=== PATIENT | male | born 1995 | race Hispanic/Latino ===

== ENCOUNTER 2022-03-24 12:22 | Emergency (ER) ==
[~2022-03-24 12:22] MED LIST: Iopamidol-370 76% 500 ML 1 ML ONE
[2022-03-24 13:54] LABS: #Eosinphils 0.1 thou/uL (0.0-0.7); #Lymphocytes 1.1 thou/uL (1.20-3.40); #Monocytes 0.7 thou/uL (0.11-0.59); #Neutrophils 7.2 thou/uL (1.40-6.50); %Basophils 0.1 % (0.0-1.0); %Eosinophils 1.2 % (0.0-10.0); %Lymphocytes 12.4 % (21.0-51.0); %Monocytes 7.3 % (0.0-10.0); Mean Corpuscular Hemoglobin 31.7 pg (27.0-31.0); Mean Corpuscular Volume 93.5 fL (78.0-98.0); Mean Platelet Volume 7.4 fL (7.4-10.4); Platelet Count 193 thou/uL (130-400); RBC Distribution Width 11.5 % (11.5-14.5); Red Blood Cell (RBC) Count 4.71 mill/uL (4.70-6.10); White Blood Cell (WBC) Count 9.2 thou/uL (4.8-10.8)
[2022-03-24 14:14] LABS: ALT (SGPT) 12 U/L (8-55); AST (SGOT) 19 U/L (5-34); Albumin 4.6 g/dL (3.5-5.0); Alkaline Phosphatase 92 U/L (40-110); Anion Gap 13 mmol/L (10-20); BUN (Urea Nitrogen) 12 mg/dL (8.9-20.6); Calc. Creatinine Clearance 0 mL/min (70-130); Calcium 9.4 mg/dL (7.8-10.44); Carbon Dioxide 23 mmol/L (22-29); Chloride 107 mmol/L (98-107); Estimated GFR 111; Globulin 3.4 g/dL (2.4-3.5); Glucose 89 mg/dL (70-105); Potassium 3.7 mmol/L (3.5-5.1); Sodium 139 mmol/L (136-145)
[2022-03-24 14:42] LABS: Bilirubin Negative (Negative); Blood, Urine Negative (Negative); Clarity Clear (Clear); Glucose, Urine (Dipstick) Normal (Negative); Ketone, Urine 60 mg/dL (Negative); Leukocyte Negative Leu/uL (Negative); Nitrite Negative (Negative); Protein, Urine (Dipstick) Negative (Neg-Trace); Urobilinogen Normal mg/dL (Less than 2)
[2022-03-24 14:56] LABS: Specific Gravity, Urine 1.056 (1.002-1.036)
== END 2022-03-24 15:36 | disposition home or self-care (01) ==
LOC: ERS 12:22
DX: N50.89 Other specified disorders of the male genital organs (principal)
CPT/HCPCS: 36415; 74177; 76870; 80053; 81003; 85025; 87077; 87086; 93976; Q9967

== ENCOUNTER 2022-03-26 14:29 | Outpatient (CLI) | payer OTHER ==
[~2022-03-26 14:29] MED LIST changes: +Iopamidol 370 76% 100 ML VIAL ONE; -Iopamidol-370 76% 500 ML 1 ML ONE
== END 2022-03-26 14:30 | disposition home or self-care (01) ==
LOC: BICCT 14:29
PROVIDERS: ATTEND Urology
DX: C62.90 Malignant neoplasm of unspecified testis, unspecified whether descended or undescended (principal)
CPT/HCPCS: 71260; Q9967

== ENCOUNTER 2022-08-01 09:07 | Outpatient (CLI) | payer OTHER ==
[2022-08-01] MEDS ORDERED: Iopamidol 370 76% 100 ML VIAL ONE (09:52)
== END 2022-08-01 09:08 | disposition home or self-care (01) ==
LOC: CT 09:07
PROVIDERS: ATTEND Urology
DX: C62.90 Malignant neoplasm of unspecified testis, unspecified whether descended or undescended (principal); R68.89 Other general symptoms and signs; Z90.79 Acquired absence of other genital organ(s)
CPT/HCPCS: 71260; 74177; Q9967

== ENCOUNTER 2023-09-16 08:09 | Outpatient (CLI) | payer OTHER | END 2023-09-16 08:10 | disposition home or self-care (01) | LOC: CT 08:09 | PROVIDERS: ATTEND Urology | DX: C62.90 Malignant neoplasm of unspecified testis, unspecified whether descended or undescended (principal); R93.3 Abnormal findings on diagnostic imaging of other parts of digestive tract | CPT/HCPCS: 71046; 74177 ==

== ENCOUNTER 2023-09-16 09:10 | Emergency (ER) | payer SELFPAY ==
[2023-09-16] MEDS ORDERED: EPINEPHrine 1 MG/ML VIAL ONE (09:20)
[2023-09-16] MEDS ORDERED: diphenhydrAMINE 50 MG/ML VIAL ONE (09:34)
[2023-09-16] MEDS ORDERED: predniSONE 20 MG TAB ONE (09:35)
[2023-09-16] MEDS ORDERED: Famotidine/PF 20 mg/2ml Vial ONE (09:35)
== END 2023-09-16 11:28 | disposition home or self-care (01) ==
LOC: ERS 09:10
DX: T88.6XXA Anaphylactic reaction due to adverse effect of correct drug or medicament properly administered, initial encounter (principal); L50.9 Urticaria, unspecified; R06.02 Shortness of breath; F17.210 Nicotine dependence, cigarettes, uncomplicated; Z55.6 Problems related to health literacy; Z85.47 Personal history of malignant neoplasm of testis
CPT/HCPCS: 93005; 96372; 96374; 96375; J0171; J1200; J7512; S0028

== ENCOUNTER 2024-04-26 07:45 | Outpatient (CLI) | payer OTHER ==
[2024-04-27] MEDS ORDERED: Iopamidol 370 76% 100 ML VIAL ONE (10:54)
== END 2024-04-26 07:46 | disposition home or self-care (01) ==
LOC: CT 07:45
PROVIDERS: ATTEND Urology
DX: C62.90 Malignant neoplasm of unspecified testis, unspecified whether descended or undescended (principal)
CPT/HCPCS: 71046; 74177